=== PATIENT | female | born 1930 | race Caucasian/White ===

== ENCOUNTER → 2016-05-05 15:27 | Outpatient (CLI) | payer MEDICARE, OTHER ==
[2015-08-01 07:03] VITALS: BMI 39.3
[~2016-05-05 15:27] MED LIST: BENICAR HCT 40-1 TAB PO; CARDIZEM CD180 MG PO; COUMADIN5 MG PO; COUMADIN7.5 MG PO; LASIX40 MG PO; LOPID600 MG PO; MAGNESIUM OXID250 MG PO; METOPROLOL TART50 MG PO; MOBIC7.5 MG PO; MULTIPLE VITAMI1 TA1 PO; POTASSIUM CHLOR8 ME1 PO; SYNTHROID100 MCG PO; VITAMIN E100 UNIT PO; ZOCOR40 MG PO; ZOLOFT100 MG PO
== END | disposition home or self-care (01) ==
LOC: D.RAD 15:27
DX: K59.00 Constipation, unspecified (principal)

== ENCOUNTER 2016-07-17 15:47 | Inpatient (IN) | payer MEDICARE, OTHER ==
[~2016-07-17] VITALS: Ht 174 cm; Wt 117.0 kg
--- NOTE | ~2016-07-17 | CN ---
PATIENT NAME:JEANCARLOS GAUTHIER MEDICAL RECORD: [id number] : 34 LOCATION:[address] [address] ADMIT DATE: 07/17/16 ACCOUNT: [id number] CONSULTING PHYSICIAN: JEN VALENZUELA MD REFERRING PHYSICIAN: HORACE CANALES MD DATE OF CONSULTATION: 07/22/2016 Pulmonary Consultation CONSULT REQUESTING PHYSICIAN: Dr. Horace Canales. REASON FOR CONSULTATION: Hospital-acquired pneumonia, COPD. HISTORY OF PRESENT ILLNESS: Ms. Gauthier is an 86-year-old female, who has a history of smoking, almost more than 40 years. She quit 1979, started at age of 15. The patient has no documented COPD and she is not on any home inhaler or nebulizer. The patient was admitted initially with a congestive heart failure, atrial fibrillation and she got better, but since yesterday, she has worsening shortness of breath. The patient was put on oxygen. She is now feeling a little better. She has a cough without much sputum production. She denies any fever or chill. REVIEW OF SYSTEMS: CONSTITUTIONAL: No fever or chills. HEENT: No sinus congestion. RESPIRATORY: As in history of present illness. GASTROINTESTINAL: Negative. CARDIOVASCULAR: She has atrial fibrillation. GENITOURINARY: Negative. Other review of the systems is negative. PAST MEDICAL HISTORY: 1. Hypertension. 2. Atrial fibrillation. 3. Congestive heart failure. 4. History of cerebrovascular accident in 1984. 5. She has a skin basal cell carcinoma. 6. Hypothyroidism. PAST SURGICAL HISTORY: 1. She has cholecystectomy. 2. She has hip replacement and knee surgery. 3. Cataract surgery. 4. She has surgery of her T&A. 5. She has a basal cell carcinoma removed. ALLERGIES: SHE IS ALLERGIC TO CITRUS, ATENOLOL, PLAVIX AND COCONUT. PRESENT MEDICATIONS: On LV Sensorstech was reviewed. PERSONAL AND SOCIAL HISTORY: The patient is a former smoker. She smoked for almost 40 years, she quitted 1979. She is a nondrinker. FAMILY HISTORY: Significant for diabetes and cardiovascular disease. CONSULT REPORT [id number] JEANCARLOS GAUTHIER PHYSICAL EXAMINATION: GENERAL: Now, the patient is lying comfortably. She is not in acute distress. She is wearing nasal cannula oxygen. VITAL SIGNS: The blood pressure is 155/62, pulse is 91, respirations 18, temperature 97.7, SpO2 is 96% on 2 liters nasal cannula. HEENT: Conjunctivae are pink. Sclerae nonicteric. NECK: Supple, no JVD. CHEST: There is no wheeze. There is a crackle on the right side. HEART: Rate and rhythm regular, normal sound, no murmur. ABDOMEN: Soft. Bowel sounds present. No hepatosplenomegaly. RECTAL: Deferred. EXTREMITIES: No cyanosis, no clubbing. There is 1+ pedal edema. SKIN: Warm, normal turgor. CENTRAL NERVOUS SYSTEM: The patient is awake and alert. There are no obvious cranial nerve abnormality. The gait was not tested. CHEST RADIOGRAPH: There is infiltrate in the right upper lobe. OTHER LABORATORY DATA: CBC: WBC 7.2, hemoglobin 10.7, hematocrit 33, the platelet count 164. Chemistry: Sodium 145, potassium 4.3, BUN is 18, creatinine 0.9. IMPRESSION: 1. Acute hypoxic respiratory failure. 2. Pneumonia, right upper lobe, consistent with hospital-acquired pneumonia, possible Gram-negative delaney, doubt methicillin-resistant Staphylococcus aureus. 3. Congestive heart failure, most likely chronic systolic dysfunction. 4. Atrial fibrillation. 5. Ex-smoker. 6. Suspect chronic obstructive pulmonary disease. RECOMMENDATION: 1. I will change the nebulizer to Xopenex and ipratropium nebulizer. 2. Start her on Levaquin and cefepime to cover for Gram-negative rods and HAP. 3. Follow up labs and chest radiograph in the morning. Dr. Canales, once again thanks for involving me in the care of Ms. Gauthier. TRANSINT:[id number] Voice Confirmation ID: [id number] DOCUMENT ID: [id number] JEN VALENZUELA MD CC: HORACE CANALES MD [id number] DICTATION DATE: 07/22/16 1531 WATERPROOF MATERIAL FOLDER: 07/22/16 1638 ADM IN [facility] [address] [facility] [place] [address]
[2016-07-17 16:55] LABS: BASOPHILS 0.1 % (0.0-2.0); EOSINOPHILS 1.1 % (0-7); HEMATOCRIT 37.1 % (36.0-48.0); HEMOGLOBIN 12.8 g/dL (12-16); IMMATURE GRANULOCYTES 0.3 % (0-5); LYMPHOCYTES 6.7 % (15-50); MCH 29.2 pg (26.0-34.0); MCHC 34.5 g/dL (31.0-37.0); MCV 84.7 fL (80.0-100.0); MEAN PLATELET VOLUME 12.3 fL (7.4-10.4); MONOCYTES 7.4 % (2-11); NEUTROPHILS 84.4 % (40-80); RBC 4.38 10x6/uL (4.00-5.40); RDW 14.2 % (11.5-14.5); WBC 8.9 10x3/uL (4.8-10.8)
[2016-07-17 16:57] LABS: PLATELET COUNT 150 10x3/uL (130-400)
[2016-07-17 17:25] LABS: ALBUMIN 3.8 g/dL (3.4-5.0); ANION GAP 22.6 mmol/L (8-16); BILIRUBIN - TOTAL 0.68 mg/dL (0.2-1.3); CALCIUM 8.7 mg/dL (8.5-10.1); CARBON DIOXIDE 16.6 mmol/L (21.0-32.0); CREATININE - SERUM 5.1 mg/dL (0.6-1.3); POTASSIUM - SERUM 3.2 mmol/L (3.5-5.1); PROTEIN - SERUM 6.9 g/dL (6.4-8.2)
[2016-07-17 17:28] LABS: TROPONIN-I 0.041 ng/mL (0.000-0.060)
[2016-07-17 17:54] LABS: APPEARANCE CLOUDY (CLEAR); BILIRUBIN NEGATIVE (NEGATIVE); COLOR YELLOW (YELLOW); GLUCOSE NEGATIVE (NEGATIVE); KETONE NEGATIVE (NEGATIVE); LEUKOCYTE ESTERASE 2+ (NEGATIVE); NITRITE NEGATIVE (NEGATIVE); PROTEIN 1+ mg/dL (NEGATIVE); SPECIFIC GRAVITY 1.015 (1.005-1.020); UROBILINOGEN NORMAL (NORMAL)
[2016-07-17 17:55] LABS: BACTERIA MODERATE /hpf (NONE SEEN); EPITHELIAL CELLS 0-5 /hpf (0-5); WHITE CELLS - URINE 25-50 /hpf (0-5)
[2016-07-17 20:00] VITALS: BP 138/61
--- NOTE | 2016-07-17 20:52 | NUR ---
RECEIVED PATIENT FROM ER. PATIENT DENIES NEEDS AT THIS TIME. BED IN LOWEST POSITION AND CALL LIGHT WITHIN REACH. ENCOURAGED PATIENT TO CALL IF SHE HAS NEEDS.
[2016-07-18] VITALS (7 sets, daily range): BP systolic 123–148; BP diastolic 53–85; Ht 174 cm; Wt 117.0 kg
--- NOTE | 2016-07-18 07:59 | NUR ---
AM ROUNDING DONE WITH ME ASSISTING PATIENT FROM THE RESTROOM. STATES THAT SHE FEEL PRIOR TO ADMIT. LEFT FA SEEN WITH NS INFUSING AT 150 CC/HR. ON ROOM AIR. ON HEART MONITOR SHOWING CAF [facility] PAC, HR 95. ASSSITED BACK TO BED, BED ALARM IS ON, NON SKID SOCKS ON. WILL MONITOR.
[2016-07-18 08:21] LABS: INR 4.33 (0.85-1.17); PROTIME 42.1 SECONDS (11.6-15.0)
--- NOTE | 2016-07-18 10:28 | NUR ---
ASSSITED TO CHAIR PAST RESTROOM USE. DENIES NEEDS AT PRESEN TIME. COMPLETE LINEN CHANGE DONE.
--- NOTE | 2016-07-18 11:08 | NUR ---
SPOKE WITH DANIELLE IN PHARMACY AND WAS TOLD THAT FLAGYL AND LEVAQUIN ARE COMPATIABLE AT Y SITE WITH SODIUM BIACAR.
[2016-07-18 12:57] LABS: ERYTHROCYTE SEDIMENTATION RATE 60 mm/hr (0-30)
--- NOTE | 2016-07-18 13:00 | NUR ---
IV ACCESS-22 GAUGE INSERTED IN RIGHT INNER FOREARM. EILEEN OAKES RN
--- NOTE | 2016-07-18 13:20 | NUR ---
1307-LEFT FA IV CATH REMOVED WITH CATH TIP INTACT.
[2016-07-18 14:28] LABS: CREATININE - URINE 81.4 mg/dL (30-125); POTASSIUM - URINE 12.6 MMOL/L (12.0-62.0); PROTEIN - URINE 24.3 mg/dL (0.0-11.9)
--- NOTE | 2016-07-18 17:56 | NUR ---
1719-COMPLAINTS OF SOME NAUSEA, ZOFRAN GIVEN ORDERED. TYLENOL WAS GIVEN JUST PRIOR FOR BACK PAIN. DR CARREON WAS HERE TO SEE PATIENT.
--- NOTE | 2016-07-18 18:45 | NUR ---
PATIENT HAS BEEN REAL GOOD USING HER CALL LIGHT FOR ALL NEEDS TODAY. REPORT GIVEN TO FAIZA AND BED ALARM IS SET.
--- NOTE | 2016-07-18 19:47 | NUR ---
RECEIVED REPORT FROM DAY NURSE, DENIES ANY NEEDS, BED IS LOW, SRX2, BED ALARM IS ON, CALL LIGHT IN REACH, WILL CONTINUE TO MONITOR
[2016-07-19] VITALS: BP 143/59
--- NOTE | 2016-07-19 01:25 | NUR ---
SLEEPING , BED ALARM ON, BED IS LOW, SRX2, CALL LIGHT IN REACH
[2016-07-19 05:07] VITALS: BP 131/49
[2016-07-19 06:10] LABS: BASOPHILS 0.2 % (0.0-2.0); HEMOGLOBIN 12.1 g/dL (12-16); IMMATURE GRANULOCYTES 0.8 % (0-5); MCHC 34.6 g/dL (31.0-37.0); MCV 83.9 fL (80.0-100.0); MEAN PLATELET VOLUME 12.5 fL (7.4-10.4); MONOCYTES 9.8 % (2-11); NEUTROPHILS 75.2 % (40-80); PLATELET COUNT 144 10x3/uL (130-400); RBC 4.17 10x6/uL (4.00-5.40); RDW 14.1 % (11.5-14.5)
[2016-07-19 06:12] LABS: HEMOGLOBIN A1C 5.4 % (4.8-6.0)
[2016-07-19 06:13] LABS: WBC 4.8 10x3/uL (4.8-10.8)
[2016-07-19 06:21] LABS: INR 2.55 (0.85-1.17); PROTIME 27.6 SECONDS (11.6-15.0)
[2016-07-19 06:22] LABS: CALCIUM 8.5 mg/dL (8.5-10.1); CHOL - HDL RATIO 3.2 ratio (2.3-4.1); LDL-HDL RATIO 1.6 ratio (1.5-3.5); THYROID STIMULATING HORMONE 1.63 uIU/mL (0.36-3.74)
[2016-07-19 06:23] LABS: ANION GAP 12.7 mmol/L (8-16); CREATININE - SERUM 2.2 mg/dL (0.6-1.3)
[2016-07-19 06:24] LABS: POTASSIUM - SERUM 2.7 mmol/L (3.5-5.1)
[2016-07-19 08:08] VITALS: BP 151/71
--- NOTE | 2016-07-19 08:34 | NUR ---
INTRODUCED MYSELF TO PT PRIMARY RN FOR TODAYS SHIFT. REPOSITIONED PT UP IN BED FOR COMFORT AND TO SWALLOW MORNING MEDICATIONS ADEQUATELY. SHIFT ASSESSMENT COMPLETED. PT HAS L.FA PIV WITH SODIUM BICARB @125ML/HR INFUSING. DRSG CDI AND SWAB CAPS IN USE. PT HAS A YIP WITH STAT LOCK SECURED TO R.INNER THIGH. DRAINING BAG HANGING OFF L.SIDE OF BED DRAINING CLEAR YELLOW URINE. PT STATES SHE IS FEELING WELL AND IS IN A PLEASANT MOOD. DENIES ANY CURRENT PAIN OR NEEDS AT THIS TIME. CL IN REACH, BED IN LOWEST, SIDE RAILS X2, WILL CPOC.
--- NOTE | 2016-07-19 10:13 | CN ---
PATIENT NAME:JEANCARLOS GAUTHIER MEDICAL RECORD: [id number] : 34 LOCATION:D. D.2108 ADMIT DATE: 07/17/16 ACCOUNT: [id number] CONSULTING PHYSICIAN: KATARINA KENNY MD REFERRING PHYSICIAN: HORACE CURRY MD DATE OF CONSULTATION: 07/18/2016 Gastroenterology Consultation DATE OF CONSULTATION: 07/18/2016. REFERRING PHYSICIAN: Horace Curry MD HISTORY OF PRESENT ILLNESS: This patient is an 86-year-old white female with a history of AFib, on Coumadin, COPD, CHF, hypothyroidism and cerebrovascular disease, status post CVA, who basically was admitted with new onset renal failure. I was asked to see her because of some diarrhea issues. On chart review, I actually saw this lady back in 2008 for some issues with diarrhea as well as history of colon polyps. Her colonoscopy that in August of 2008 was completely normal with the exception of small internal hemorrhoids. Random biopsies were negative for microscopic colitis. It was felt that she possibly had IBS and I have not seen her since. It looks like for the past year and a half. She has had some recurrent problems with her diarrhea and especially over the past week or two. She develops rather significant weakness and poor appetite over the past few days and was found to be dehydrated and in renal failure with a creatinine of over 5, thus prompting this admission. She has continued taking her medications including Lasix and Mobic as well as Benicar/HCTZ over this past week or so, which probably contributed to her dehydration and renal issues. As noted above, she is on Coumadin because of cerebrovascular disease and apparent blood clot and her AFib as well. She has no known history of kidney disease. She denies any hematochezia or abdominal pain. PAST MEDICAL HISTORY: As above. She also has cataracts. PAST SURGICAL HISTORY: Remarkable cholecystectomy, hip surgery, knee surgery, cataract removal, tubal ligation, and tonsillectomy. ALLERGIES: ATENOLOL AND PLAVIX. HOME MEDICATIONS: Include Coumadin, simvastatin, Lopid, Cardizem, Zoloft, Benicar/HCTZ, Mobic, Lasix, Lopressor, potassium, Synthroid, and vitamins. FAMILY HISTORY: Negative for GI disease. SOCIAL HISTORY: The patient is a former smoker. She denies alcohol use. REVIEW OF SYSTEMS: Noncontributory other than in the HPI. PHYSICAL EXAMINATION: GENERAL: Reveals an elderly white female, in no acute distress. VITAL SIGNS: Stable. She is afebrile. CHEST: Clear. HEART: ____ rate and rhythm. CONSULT REPORT [id number] JEANCARLOS GAUTHIER ABDOMEN: Soft, nontender. EXTREMITIES: No edema. LABORATORY DATA: Reveals normal electrolytes, BUN 105 and creatinine 5.1. Liver enzymes are normal. ProBNP is 2500. Albumin ____ amylase and lipase are normal. White count 8000, hematocrit 37, MCV of 84, and platelet counts 150,000. INR is 4.3. Stool culture __ are pending. DIAGNOSTIC DATA: CT of the abdomen and pelvis is normal other than marked cardiomegaly and enlarged right parapelvic cyst. IMPRESSION: 1. Qgxko-mb-kmmozwg diarrhea of unclear etiology, though I suspect her diarrhea is probably due to irritable bowel syndrome and I would think that her renal disease and dehydration are contributing more towards diarrhea than anything else. 2. Acute renal failure, probably multifactorial in origin, related to Lasix, HCTZ, Mobic, et cetera. 3. History of atrial fibrillation. 4. Hypertension. 5. Cerebrovascular accident, on Coumadin. RECOMMENDATION: 1. Agree with vigorous IV fluids and holding her diuretics and NSAIDs. 2. Follow up stool studies. 3. Agree with empiric antibiotics. 4. If her diarrhea does improve, we will consider flex-sig with random colon biopsies. TRANSINT:[id number] Voice Confirmation ID: [id number] DOCUMENT ID: [id number] KATARINA KENNY MD at 1013 CC: HORACE CURRY MD [id number] DICTATION DATE: 07/18/16 1345 MANAGER DEPARTMENT: 07/18/16 1653 ADM IN [facility] [address] [place] [address]
[2016-07-19 11:57] VITALS: BP 149/75
--- NOTE | 2016-07-19 15:50 | NUR ---
PT CALLED REQUESTING HER TYLENOL FOR A ROYAL AND SHOULDER PAIN AND WAS PROVIDED WITH IT. L.FA PIV INFILTRATED AND WAS REMOVED WITH CATHETER TIP FULLY INTACT. WILL ATTEMPT NEW ACCESS.
[2016-07-19 16:07] VITALS: BP 134/61
--- NOTE | 2016-07-19 16:14 | NUR ---
MIGUEL GURROLA RN ATTEMPTED ACCESS 4 TIMES WITH STILL NO SUCCESS. WILL CALL AND SEE IF ICU NURSE IS AVAILABLE FOR ACCESS.
[2016-07-19 16:22] LABS: ANION GAP 13.7 mmol/L (8-16); CALCIUM 8.2 mg/dL (8.5-10.1); CARBON DIOXIDE 25.6 mmol/L (21.0-32.0); CREATININE - SERUM 1.7 mg/dL (0.6-1.3); POTASSIUM - SERUM 3.3 mmol/L (3.5-5.1)
--- NOTE | 2016-07-19 19:11 | NUR ---
NEW PIV ACCESS ACHEIVED VIA EKTA LEDEZMA RN. 22 GUAGE X1 ATTEMPT. INITIATED IV FLUIDS NS @100ML/HR WITH LEVAQUIN INFUSING IVPB. PT VOICED THANKS AND IS WATCHING TV. DENIES ANY CURRENT PAIN OR FURTHER NEEDS. CL IN REACH, BED LOWEST, SIDE RAILS X2. WILL CPOC.
--- NOTE | 2016-07-19 20:04 | NUR ---
TYLENOL 650 MG GIVEN FOR C/O PAIN TO LEFT SIDE, RATES PAIN AT AN 8 ON PAIN SCALE. WILL CONT TO MONITOR.
--- NOTE | 2016-07-19 21:04 | NUR ---
HS MEDS GIVEN WITH FRESH ICE WATER. PT STATES THAT THE TYLENOL GIVEN EARLIER HAS REALLY HELPED WITH WITH HER LEFT SIDE PAIN. REPOSITIONED IN BED FOR COMFORT. NO OTHER NEEDS AT THIS TIME.
[2016-07-19 21:16] VITALS: BP 149/71
--- NOTE | 2016-07-19 23:11 | NUR ---
RESTING WITH EYES CLOSED, RESPERATIONS EVEN, NO S/S DISTRESS NOTED.
[2016-07-20 00:30] VITALS: BP 155/74
[2016-07-20 04:30] VITALS: BP 155/74
[2016-07-20 05:48] LABS: BASOPHILS 0.4 % (0.0-2.0); EOSINOPHILS 4.5 % (0-7); HEMATOCRIT 32.4 % (36.0-48.0); HEMOGLOBIN 10.8 g/dL (12-16); IMMATURE GRANULOCYTES 2.2 % (0-5); MCH 28.6 pg (26.0-34.0); MCHC 33.3 g/dL (31.0-37.0); MEAN PLATELET VOLUME 11.6 fL (7.4-10.4); MONOCYTES 9.8 % (2-11); NEUTROPHILS 72.1 % (40-80); PLATELET COUNT 135 10x3/uL (130-400); RBC 3.77 10x6/uL (4.00-5.40); RDW 14.4 % (11.5-14.5); WBC 4.5 10x3/uL (4.8-10.8)
[2016-07-20 06:01] LABS: MCV 85.9 fL (80.0-100.0)
[2016-07-20 06:08] LABS: ALBUMIN 2.7 g/dL (3.4-5.0); ANION GAP 13.2 mmol/L (8-16); BILIRUBIN - TOTAL 0.59 mg/dL (0.2-1.3); CALCIUM 8.3 mg/dL (8.5-10.1); CARBON DIOXIDE 23.9 mmol/L (21.0-32.0); CREATININE - SERUM 1.4 mg/dL (0.6-1.3); MAGNESIUM - SERUM 1.7 mg/dL (1.8-2.4); POTASSIUM - SERUM 3.1 mmol/L (3.5-5.1); URIC ACID 9.1 mg/dL (2.6-7.2)
[2016-07-20 06:17] LABS: INR 2.31 (0.85-1.17); PROTIME 25.5 SECONDS (11.6-15.0)
[2016-07-20 07:54] VITALS: BP 149/74
--- NOTE | 2016-07-20 10:10 | NUR ---
PT UP WALKING WITH THERAPY. FEELS GOOD AND STATES SHE IS FEELING STRONGER. AMBULATING WELL WITH WALKER. DENIES ANY CURRENT PAIN OR FURTHER NEEDS. CL IN REACH. WILL CPOC.
[2016-07-20 12:22] VITALS: BP 154/91
--- NOTE | 2016-07-20 12:43 | NUR ---
BLADDER TRAINING INITIATED. CLAMPED OFF YIP AND TEACHING PROVIDED. PT VERBALIZING UNDERSTANDING. FRIENDS AT BEDSIDE VISITING. CL IN REACH. WILL CPOC.
--- NOTE | 2016-07-20 14:02 | NUR ---
PT FELT URGE TO VOID. UNCLAMPED YIP AND ALLOWED URINE FLOW. WILL RECLAMP AND CONTINUE WITH TRAINING.
--- NOTE | 2016-07-20 15:00 | NUR ---
2 GRAMS TOTAL OF MAG REPLACEMENT GIVEN PER ORDER. PT SITTING UP IN BED RESTING QUIETLY DENIES ANY CURRENT PAIN OR NEEDS. WILL CPOC.
[2016-07-20 15:45] VITALS: BP 145/75
--- NOTE | 2016-07-20 17:02 | NUR ---
PT FELT URGE TO VOID AGAIN. TUBING UNCLAMPED THEN RECLAMPED AFTER FLOW OF URINE STOPPED. WILL CONTINUE WITH BLADDER TRAINING.
--- NOTE | 2016-07-20 19:51 | NUR ---
ASSESSMENT COMPLETE, A&O, IN BED WATCHING TV. IV TO RIGHT WRIST WITH NS INFUSING AT 50 CC/HR. SITE CLEAN AND DRY. PT DENIES PAIN OR NEEDS. WILL CONT TO MONITOR.
[2016-07-20 20:00] VITALS: BP 152/88
--- NOTE | 2016-07-21 00:05 | NUR ---
PT STATED THAT SHE HAS THE URGE TO URINATE, YIP UNCLAMPED.
--- NOTE | 2016-07-21 01:19 | NUR ---
RESTING WITH EYES CLOSED, RESPERATIONS EVEN, NO S/S DISTRESS NOTED.
--- NOTE | 2016-07-21 02:30 | NUR ---
YIP CLAMPED OFF FOR BLADDER TRAINING.
--- NOTE | 2016-07-21 03:52 | NUR ---
CUT TO LENGTH OPERATOR AT BEDSIDE FOR VS. NEEDS ADDRESSED. CALL LIGHT IN REACH. WILL CONT TO MONITOR.
[2016-07-21 04:00] VITALS: BP 146/73
--- NOTE | 2016-07-21 04:47 | NUR ---
PHI UNCLAMPED AT PT REQUEST.
[2016-07-21 04:58] LABS: BASOPHILS 0.5 % (0.0-2.0); EOSINOPHILS 3.6 % (0-7); HEMATOCRIT 32.8 % (36.0-48.0); HEMOGLOBIN 10.9 g/dL (12-16); IMMATURE GRANULOCYTES 3.5 % (0-5); LYMPHOCYTES 10.6 % (15-50); MCHC 33.2 g/dL (31.0-37.0); MCV 87.2 fL (80.0-100.0); MEAN PLATELET VOLUME 11.6 fL (7.4-10.4); MONOCYTES 10.9 % (2-11); NEUTROPHILS 70.9 % (40-80); PLATELET COUNT 155 10x3/uL (130-400); RBC 3.76 10x6/uL (4.00-5.40); RDW 14.5 % (11.5-14.5); WBC 5.5 10x3/uL (4.8-10.8)
[2016-07-21 05:15] LABS: ANION GAP 14.2 mmol/L (8-16); CALCIUM 8.8 mg/dL (8.5-10.1); CARBON DIOXIDE 24.4 mmol/L (21.0-32.0); CREATININE - SERUM 1.1 mg/dL (0.6-1.3)
[2016-07-21 05:22] LABS: INR 2.09 (0.85-1.17); PROTIME 23.5 SECONDS (11.6-15.0)
[2016-07-21 05:33] LABS: POTASSIUM - SERUM 3.6 mmol/L (3.5-5.1)
--- NOTE | 2016-07-21 07:20 | NUR ---
AM ROUNDS - PT IN THE BATHROOM. ASSISTED TO CHAIR. MONITOR SHOWING A FIB HR OF 87. FOLLEY DRAINING DARK YELLOW. RIGHT WRIST IV WITH NS 100CC/HR. PT DENIES ANY NEEDS AT THIS TIME. WILL CONTINUE TO MONITOR.
[2016-07-21 08:50] VITALS: BP 153/93
--- NOTE | 2016-07-21 10:00 | NUR ---
UP WITH THERAPY AND ROLLING WALKER AROUND NURSE STATION.
--- NOTE | 2016-07-21 10:59 | NUR ---
1065 - YIP CATH D/C. 450CC CLEAR YELLOW URINE. PT TOLERATED WELL.
[2016-07-21 12:33] VITALS: BP 171/86
[2016-07-21 14:17] LABS: ANA REFLEX - DIRECT Negative (Negative)
--- NOTE | 2016-07-21 16:02 | NUR ---
DR CURRY OFFICE TO CALL WITH NEW ORDERS.
[2016-07-21 16:15] VITALS: BP 176/79
[2016-07-21 19:10] LABS: SPE - ALBUMIN 3.1 g/dL (2.9-4.4); SPE - ALPHA-1 GLOBULIN 0.3 g/dL (0.0-0.4); SPE - ALPHA-2 GLOBULIN 1.1 g/dL (0.4-1.0); SPE - BETA GLOBULIN 0.8 g/dL (0.7-1.3); SPE - GAMMA GLOBULIN 0.8 g/dL (0.4-1.8); SPE - M-SPIKE Not Observed g/dL (Not Observed); SPE - TOTAL PROTEIN 6.1 g/dL (6.0-8.5)
--- NOTE | 2016-07-21 19:37 | NUR ---
ASSESSMENT COMPLETE, A&O. IV TO RIGHT WRIST WITH NS A 50 CC/HR. SITE CLEAN AND DRY. RESPERATIONS EVEN ON ROOM AIR. FRESH ICE WATER GIVEN AT PT REQUEST, PT DENIES OTHER NEEDS AT THIS TIME, BED LOW, CL IN REACH.
[2016-07-21 20:00] VITALS: BP 150/86
--- NOTE | 2016-07-21 20:32 | NUR ---
UP WITH ASSIST TO BR
--- NOTE | 2016-07-21 20:47 | NUR ---
HS MEDS GIVEN WITH FRESH ICE WATER, TYLENOL 650 MG GIVEN FOR C/O HEADACHE. WILL CONT TO MONITOR.
--- NOTE | 2016-07-21 23:23 | NUR ---
INTERIOR ASSEMBLIES DEVELOPER PROVER AT BEDSIDE FOR VS. NEEDS ADDRESSED AT THIS TIME. CALL LIGHT IN REACH. WILL CONT TO MONITOR.
--- NOTE | 2016-07-21 23:27 | NUR ---
RESTING WITH EYES CLOSED, RESPERATIONS EVEN AND UNALABORED.
[2016-07-22] VITALS: BP 149/82
[2016-07-22 04:00] VITALS: BP 160/85
[2016-07-22 05:47] LABS: BASOPHILS 0.3 % (0.0-2.0); EOSINOPHILS 2.8 % (0-7); HEMOGLOBIN 10.7 g/dL (12-16); IMMATURE GRANULOCYTES 3.2 % (0-5); LYMPHOCYTES 7.8 % (15-50); MCH 28.7 pg (26.0-34.0); MCHC 32.4 g/dL (31.0-37.0); MCV 88.5 fL (80.0-100.0); MEAN PLATELET VOLUME 11.5 fL (7.4-10.4); MONOCYTES 7.6 % (2-11); NEUTROPHILS 78.3 % (40-80); PLATELET COUNT 164 10x3/uL (130-400); RBC 3.73 10x6/uL (4.00-5.40); RDW 14.8 % (11.5-14.5)
[2016-07-22 05:55] LABS: WBC 7.2 10x3/uL (4.8-10.8)
[2016-07-22 05:57] LABS: INR 2.16 (0.85-1.17); PROTIME 24.2 SECONDS (11.6-15.0)
[2016-07-22 06:09] LABS: ANION GAP 14.2 mmol/L (8-16); CALCIUM 8.2 mg/dL (8.5-10.1); CARBON DIOXIDE 23.1 mmol/L (21.0-32.0); CREATININE - SERUM 0.9 mg/dL (0.6-1.3)
[2016-07-22 06:10] LABS: POTASSIUM - SERUM 4.3 mmol/L (3.5-5.1)
--- NOTE | 2016-07-22 07:11 | NUR ---
AM ROUNDS - PT AWAKE IN BED. NS INFUSING AT 50CC/HR. MONITOR SHOWING CONTROLLED AFIB, HR 108. PT STATES SHE HAS BEEN URINATING. PT DENIES ANY NEEDS AT THIS TIME. WILL CONTINUE TO MONITOR.
[2016-07-22 07:54] VITALS: BP 153/72
[2016-07-22 11:46] VITALS: BP 155/62
--- NOTE | 2016-07-22 12:43 | NUR ---
PATIENT TO COMPLAIN OF RIGHT HIP "THINK I TWISTED WRONG IN BED LAST NIGHT". CALL PLACED TO DR CURRY OFFICE TO SEE IF WE CAN GET AN XRAY. THEY ARE AT LUNCH AT PRESENT AND WILL CALL BACK.
--- NOTE | 2016-07-22 13:23 | NUR ---
CALLED AGAIN TO DR CURRY'S OFFICE, THEY ARE STILL AT LUNCH AND WILL NOT BE BACK TILL 1400.
--- NOTE | 2016-07-22 13:57 | NUR ---
CALLED AND SPOKE WITH DR CURRY REGARDING RIGHT HIP PAIN. NEW ORDERS RECIVED.
--- NOTE | 2016-07-22 14:28 | NUR ---
PT LEFT FLOOR VIA WHEELCHAIR TO RADIOLOGY.
--- NOTE | 2016-07-22 14:29 | NUR ---
PATIENT TO RADIOLOGY VIA WHEELCHAIR AND PORTABLE O2.
--- NOTE | 2016-07-22 14:49 | NUR ---
PT BACK FROM RADIOLOGY. PT BACK TO THE BED.
[2016-07-22 15:43] VITALS: BP 156/78
--- NOTE | 2016-07-22 16:13 | NUR ---
Patient Name: JEANCARLOS GAUTHIER Admission Status: ER Accout number: [id number] Admission Date: 07-17-2016 : 1932 Admission Diagnosis:UNSPECIFIED KIDNEY FAILURE Attending: DAVIDE Current LOS: 5 Anticipated DC Date: Planned Disposition: Home with Home Health Primary Insurance: MEDICARE A & B PLANNED EXTERNAL PROVIDER: [facility] Discharge Planning Comments: * Is the patient Alert and Oriented? Yes 0 * How many steps to enter\exit or inside your home? NONE 0 * PCP DR. CURRY 0 * Pharmacy [facility] 0 * Preadmission Environment Home Alone 0 * ADLs Independent 0 * Equipment Cane Walker 0 * Other Equipment NO MEDICAL EQUIPMENT PROVIDER PREFERENCE. PT REPORTS ABILITY TO BORROW NEEDED MEDICAL EQUIPMENT FROM [facility] WHERE SHE LIVES. 0 * List name and contact numbers for known caregivers / representatives who currently or will assist patient after discharge: ADE GAUTHIER, BROTHER, 0 * Community resources currently utilized None 0 * Please name any agencies selected above. PT LIVES AT [facility] AND HAS: ME[employer]ICE TRANSPORTATION SERVICE 0 * Additional services required to return to the preadmission environment? No 0 * Can the patient safely return to the preadmission environment? Yes 0 * Has this patient been hospitalized within the prior 30 days at any hospital? No 0 CM MET WITH PT IN ROOM TO DISCUSS DISCHARGE PLANNING AND NEEDS. PT REPORTS LIVING AT HOME INDEPENDENTLY AT [facility] IN AN APARTMENT. PT IS MOVING FROM #417 TO #412 WHEN SHE DISCHARGES HOME. PT HAS A CANE AND WALKER WITH NO MEDICAL EQUIPMENT PROVIDER PREFERENCE. PT REPORTS ABILITY TO OBTAIN ANY NEEDED EQUIPMENT FROM [facility]. PT HAS NO OUTSIDE SERVICES ASSISTING IN THE HOME. CM DISCUSSED AVAILABILITY OF HOME HEALTH, REHAB SERVICES AND MEDICAL EQUIPMENT. PT DENIES REHAB NEED, WILL ACCEPT HOME HEALTH WITH [facility], CHOICE SIGNED. PT REPORTS HER BROTHER OR FRIEND WILL PICK HER UP FOR DISCHARGE HOME. IMPORTANT MESSAGE FROM MEDICARE PROVIDED AND EXPLAINED. PT HAD CONSIDERED HOSPICE WITH HOSPICE HOME CARE WHEN SHE THOUGHT HER KIDNEYS WERE FAILING BUT HER KIDNEYS ARE WORKING AND SHE IS NOT CONSIDERING HOSPICE NOW. CM WILL ARRANGE HOME HEALTH WITH [facility] IF AGREED BY AND ORDERED BY PHYSICIAN. Donkey Engine Firer/Fireman: Kenneth Garcia
[2016-07-22 21:58] VITALS: BP 151/76
[2016-07-23] VITALS: BP 140/66
--- NOTE | 2016-07-23 00:09 | NUR ---
RESTING WITH EYES CLOSED, RESPERATIONS EVEN, NO S/S DISTRESS NOTED.
--- NOTE | 2016-07-23 03:57 | NUR ---
CALL OUT OPERATOR AT BEDSIDE FOR VS. NEEDS ADDRESSED AT THIS TIME. CALL LIGHT IN REACH. WILL CONT TO MONITOR.
--- NOTE | 2016-07-23 04:02 | NUR ---
TYLENOL 650 MG GIVEN AT PT REQUEST FOR C/O HEADACHE.
[2016-07-23 04:45] LABS: BASOPHILS 0.3 % (0.0-2.0); EOSINOPHILS 1.4 % (0-7); HEMATOCRIT 34.8 % (36.0-48.0); HEMOGLOBIN 11.1 g/dL (12-16); IMMATURE GRANULOCYTES 3.4 % (0-5); LYMPHOCYTES 8.4 % (15-50); MCH 28.7 pg (26.0-34.0); MCHC 31.9 g/dL (31.0-37.0); MCV 89.9 fL (80.0-100.0); MEAN PLATELET VOLUME 11.6 fL (7.4-10.4); MONOCYTES 7.5 % (2-11); PLATELET COUNT 186 10x3/uL (130-400); RBC 3.87 10x6/uL (4.00-5.40); WBC 8.8 10x3/uL (4.8-10.8)
[2016-07-23 05:02] LABS: INR 2.91 (0.85-1.17); PROTIME 30.7 SECONDS (11.6-15.0)
[2016-07-23 05:17] LABS: ANION GAP 14.8 mmol/L (8-16); CALCIUM 8.7 mg/dL (8.5-10.1); CARBON DIOXIDE 23.8 mmol/L (21.0-32.0)
[2016-07-23 05:18] LABS: POTASSIUM - SERUM 3.6 mmol/L (3.5-5.1)
[2016-07-23 06:05] VITALS: BP 139/70
[2016-07-23 07:55] VITALS: BP 155/84
[2016-07-23 11:51] VITALS: BP 187/82
--- NOTE | 2016-07-23 13:56 | NUR ---
Nutrition follow-up: Diet: Renal PO intake ~75% average of last 9 meals Labs reviewed +BM Wt: 273# PO intake good at this time. RDN following.
[2016-07-23 16:05] VITALS: BP 151/84
[2016-07-23 22:01] VITALS: BP 163/81
--- NOTE | 2016-07-24 00:50 | NUR ---
ASSESSED AT THE BEGINNING OF THE SHIFT. PT IS ALERT AND ORIENTED, ABLE TO VERBALIZE NEEDS. SHE IS WEARING ICE ACROSS HER SHOULDERS AND HAS REQUESTED TO KEEP IT THERE DUE TO NECK PAIN. SHE HAS ALSO TAKEN FIROCET ORDERED AND NOW HAS TAKEN TYLENOL ORDERED. WE ARE ASSISTING HER UP TO THE BATHROOM TO VOID AND SHE HAS DONE WELL. THER IS TELEMETRY IN PLACE AND O2 AT 2 LITERS. THE BED IS LOW, RAILS UP X'S 2 WITH THE CALL LIGHT AT HAND.
[2016-07-24 01:01] VITALS: BP 171/86
[2016-07-24 04:00] VITALS: BP 162/84
[2016-07-24 04:59] LABS: BASOPHILS 0.2 % (0.0-2.0); HEMATOCRIT 31.5 % (36.0-48.0); HEMOGLOBIN 10.1 g/dL (12-16); IMMATURE GRANULOCYTES 1.7 % (0-5); LYMPHOCYTES 5.5 % (15-50); MCH 28.7 pg (26.0-34.0); MCHC 32.1 g/dL (31.0-37.0); MCV 89.5 fL (80.0-100.0); MONOCYTES 7.3 % (2-11); NEUTROPHILS 84.3 % (40-80); PLATELET COUNT 157 10x3/uL (130-400); RBC 3.52 10x6/uL (4.00-5.40); WBC 8.7 10x3/uL (4.8-10.8)
[2016-07-24 05:24] LABS: INR 4.44 (0.85-1.17)
[2016-07-24 05:39] LABS: ANION GAP 16.3 mmol/L (8-16); CARBON DIOXIDE 20.7 mmol/L (21.0-32.0); CREATININE - SERUM 0.9 mg/dL (0.6-1.3)
[2016-07-24 08:41] VITALS: BP 152/68
[2016-07-24 12:00] VITALS: BP 115/85
[2016-07-24 16:13] VITALS: BP 158/73
--- NOTE | 2016-07-24 16:21 | NUR ---
ALERT AND ORIENTED X4. SOB. LABORED BREATHING. UNABLE TO FINISH SENTENCE WITH ONE BREATH. REFUSED PHYSICAL THERAPY THIS AFTERNOON DUE TO SOB. WHILE SLEEPING O2 SAT DROPS TO 90% @ 2L NC. CALL 'S OFFICE. IV LASIX 20mg Q12H ORDERED VIA TELEPHONE. ELECTROLYTE PROTOCOL ORDERED. CONTINUE PLAN OF CARE. CHAIR LOCKED. UNCONTROLLED A-FIB 115bpm ON TELEMETRY. CALL LIGHT IN REACH.
--- NOTE | 2016-07-24 19:30 | NUR ---
PT RECEIVED SITTING UP IN BED WATCHING TELEVISION. RESPIRATORY AT BEDSIDE ADMINISTERING UPDRAFT. PT IS ALERT AND ORIENTED X4. IV TO LEFT HAND WITH NORMAL SALINE @ KVO, NOTED TO BE PATENT. NO REDNESS OR EDEMA NOTED TO SITE. O2 @ 2L PER NC. CALL LIGHT AND H20 IN PT REACH. BED IN LOW POSITION. SIDE RAILS UP X2.
[2016-07-24 20:00] VITALS: BP 171/81
--- NOTE | 2016-07-25 03:45 | NUR ---
PT RESTING IN BED WITH EYES CLOSED. NO S/S OF DISTRESS NOTED. CALL LIGHT AND H2O IN PT REACH. BED IN LOW POSITION. SIDE RAILS UP X2.
[2016-07-25 04:00] VITALS: BP 164/96
[2016-07-25 04:48] LABS: BASOPHILS 0.1 % (0.0-2.0); EOSINOPHILS 0 % (0-7); HEMATOCRIT 31.5 % (36.0-48.0); HEMOGLOBIN 10.1 g/dL (12-16); IMMATURE GRANULOCYTES 1.1 % (0-5); LYMPHOCYTES 3.4 % (15-50); MCH 28.5 pg (26.0-34.0); MCHC 32.1 g/dL (31.0-37.0); MCV 88.7 fL (80.0-100.0); MEAN PLATELET VOLUME 11.4 fL (7.4-10.4); MONOCYTES 3.4 % (2-11); PLATELET COUNT 154 10x3/uL (130-400); RBC 3.55 10x6/uL (4.00-5.40); RDW 14.9 % (11.5-14.5); WBC 10.4 10x3/uL (4.8-10.8)
[2016-07-25 04:50] LABS: ANION GAP 11.8 mmol/L (8-16); CALCIUM 8.3 mg/dL (8.5-10.1); CARBON DIOXIDE 24.1 mmol/L (21.0-32.0); CREATININE - SERUM 1.1 mg/dL (0.6-1.3); POTASSIUM - SERUM 3.9 mmol/L (3.5-5.1)
[2016-07-25 05:02] LABS: INR 5.54 (0.85-1.17); PROTIME 51.3 SECONDS (11.6-15.0)
--- NOTE | 2016-07-25 07:22 | NUR ---
PT SITTING ON SIDE OF BED COMPLETIONS MANAGER AT BEDSIDE HELPING PT TO BATHROOM DENIES NEEDS WILL CONT TO MONITOR
[2016-07-25 08:51] LABS: MAGNESIUM - SERUM 1.3 mg/dL (1.8-2.4); PHOSPHOROUS 2.8 mg/dL (2.5-4.9)
--- NOTE | 2016-07-25 11:33 | NUR ---
PT SITTING UP IN BED DENIES NEEDS, VERY PLEASANT. WILL CONT TO MONITOR
[2016-07-25 11:54] VITALS: BP 157/89
--- NOTE | 2016-07-25 14:05 | NUR ---
Nutrition Follow Up: Chart reviewed. Pt is eating 50% meal avg on a renal diet. Wt gain of 20# since admit - fluid vs scales? +BM x 6 07/24/16. Labs noted - Glucose elevated. Meds noted including Humulin, Solu-Medrol, Lasix, Flagyl. Pt with poor po intake - not meeting est nutritional needs. Rec consider liberalizing diet to encourage po intake. Will continue to provide selective menus and honor food preferences. RD following.
[2016-07-25 15:21] VITALS: BP 149/88
--- NOTE | 2016-07-25 17:29 | NUR ---
PT SITTING UP IN BED DENIES NEEDS
--- NOTE | 2016-07-25 19:52 | NUR ---
ALERT/AWAKE REC UPDRAFT TX. DENIES PAIN OR ANY NEEDS. IV IN L H INTACT SL. SHIFT ASSESSMENTS COMPLETED. BEDSIDE TABLE AND CALL LIGHT IN REACH.
[2016-07-25 20:34] VITALS: BP 156/94
--- NOTE | 2016-07-25 22:20 | NUR ---
ADMIN TYLENOL 650 MG PO PER REQUEST FOR C/O HEADACHE PAIN LEVEL 4 ON NUMBER SCALE. NO OTHER NEEDS VOICED.
--- NOTE | 2016-07-25 23:08 | NUR ---
ASSISTED TO BATHROOM TO VOID AND BACK TO BED. AMBULATED WITH WALKER. GETS VERY SOB WITH PHYSICAL EXERTION. STAYED WITH HER UNTIL SHE WAS BREATHING EASIER.
[2016-07-26 00:26] VITALS: BP 148/88
[2016-07-26 04:19] VITALS: BP 177/93
--- NOTE | 2016-07-26 05:35 | NUR ---
CHECKED BS AT 123. ADMIN SCHED MEDS. REQUESTED CUP OF ICE AND ASSIST TO BR. NO OTHER NEEDS OR DISCOMFORTS VOICED.
[2016-07-26 05:52] LABS: BASOPHILS 0.1 % (0.0-2.0); EOSINOPHILS 0 % (0-7); HEMOGLOBIN 10.2 g/dL (12-16); IMMATURE GRANULOCYTES 0.7 % (0-5); LYMPHOCYTES 3.4 % (15-50); MCH 29.1 pg (26.0-34.0); MCHC 32.9 g/dL (31.0-37.0); MCV 88.6 fL (80.0-100.0); MEAN PLATELET VOLUME 12.1 fL (7.4-10.4); MONOCYTES 6.4 % (2-11); NEUTROPHILS 89.4 % (40-80); PLATELET COUNT 162 10x3/uL (130-400); RDW 14.9 % (11.5-14.5)
[2016-07-26 05:53] LABS: WBC 13.7 10x3/uL (4.8-10.8)
[2016-07-26 05:54] LABS: INR 2.12 (0.85-1.17); PROTIME 23.8 SECONDS (11.6-15.0)
[2016-07-26 05:56] LABS: ANION GAP 17.4 mmol/L (8-16); CALCIUM 8.4 mg/dL (8.5-10.1); CARBON DIOXIDE 20.4 mmol/L (21.0-32.0); CREATININE - SERUM 1.3 mg/dL (0.6-1.3); MAGNESIUM - SERUM 1.5 mg/dL (1.8-2.4); PHOSPHOROUS 3.1 mg/dL (2.5-4.9); POTASSIUM - SERUM 3.8 mmol/L (3.5-5.1)
--- NOTE | 2016-07-26 07:42 | NUR ---
0730-AM ROUNDING DONE. PATIENT REPORTS TO BEING "AIR HUNGRY". ON 3L PER NC, O2 SAT IS 93%. PATIENT HAS A SQUEAKING SOUND, NOT STRIDOR, TO HER THROAT AREA, BILATERAL LUNGS ARE DIMINISHED. WILL GIVE HER SOME HOT TEA TO SEE IF THIS HELPS ANY. ON HEART MONITOR SHOWING UCAF, HR 135. SALINE LOCK SEEN TO LEFT HAND. ON EP, MAG IS 1.5, WILL GIVE PO SUPPLEMENTS. HAS HEADACHE, WILL SEE ABOUT SOMETHING FOR IT. WILL MONITOR.
[2016-07-26 07:58] VITALS: BP 165/85
--- NOTE | 2016-07-26 09:57 | NUR ---
UP TO RESTROOM WITH HEART RATE JUMPING TO 180 PER STORE FACILITY TECHNICIAN.
--- NOTE | 2016-07-26 10:48 | NUR ---
CALL PLACED TO DR KOENIG PATIENT STATES THAT SHE FEELS HER BREATHING IS MORE SHALLOW. "I CAN BREATH THROUGH MY NOSE BUT WHEN I PURSE MY LIPS TO BREATH OUT I CAN'T BREATH AND HAVE TO TAKE ANOTHER SHALLOW BREATH". CALL PLACED TO SEE IF WE CAN GET HER SOME ATIVAN TO HELP WITH BREATHING. R 33, OS SAT IS 92%.
--- NOTE | 2016-07-26 11:01 | NUR ---
DR KOENIG TO CALL BACK WITH SOME NEW ORDERS.
--- NOTE | 2016-07-26 11:42 | NUR ---
1114-ATIVAN 0.5 MG GIVEN PO ORDERED. ENCOURAGED TO TRY AND SLOW HER BREATHING DOWN IF SHE COULD, CHEECKS ARE FLUSHED. WILL CONTINUE TO MONITOR HER. 1145-CHEECKS ARE NOT FLUSHED NOW, IV STEROIDS GIVEN EARY TO SEE IF THAT MIGHT HELP WITH AIR FLOW. SHE STATES THAT SHE HAS CALLED HER BROTHER, HER S.O, AND HER HIGH RISK OB IN.
[2016-07-26 11:54] VITALS: BP 135/93
--- NOTE | 2016-07-26 12:25 | NUR ---
RESP 36. STILL STATES THAT SHE CAN NOT GET "AIR". O2 SAT IS 93%.
--- NOTE | 2016-07-26 13:16 | NUR ---
PATIENT'S FAMILY (BROTHER VICTORIANO) IS HERE. PATIENT IS SQEEKING AGAIN WITH HER BREATHING TREATMENT. RESP ARE STILL 36. WILL CONTINUE TO MONITOR AND WILL ASK DR KOENIG WHEN IF THERE IS SOMETHING ELSE WE CAN GIVE HER. R.T PLACED HER ON 4L PER NC HER SAT DROPPED TO 88% BEFORE BREATHING TREATMENT.
[2016-07-26 15:39] VITALS: BP 148/82
--- NOTE | 2016-07-26 16:44 | NUR ---
IV STARTING TO INFILTATE TO LEFT HAND. LEVAQUIN STOPPED. WILL ATTEMPT RE-SITE.
--- NOTE | 2016-07-26 18:20 | NUR ---
PAST 3 ATTEMPTS BY SARWAT IN ICU AND ONCE BY Viky ESTRADA RN, 20 G TO RIGHT FA. LEVAQUIN RESTARTED.
--- NOTE | 2016-07-26 19:03 | NUR ---
SITTING UP IN BED, AAOX3, SKIN WARM AND DRY, RESP LABORED AND SHALLOW, O2@2LNC, IV PATENT TO RIGHT WRIST, WILL CONTINUE TO MONITOR
--- NOTE | 2016-07-26 20:00 | NUR ---
FOUND IN BED NOT BREATHING, UNRESPONSIVE, NO PULSE DETECTED, DR KOENIG NOTIFIED
[2016-07-26 20:19] VITALS: BP 139/85
--- NOTE | 2016-07-26 20:25 | NUR ---
DR WELSH IN TO [facility], FAMILY NOTIFED
--- NOTE | 2016-07-26 22:30 | NUR ---
RELEASED TO [facility]
== END 2016-07-26 22:48 | DRG 682 ==
LOC: D.ER 15:47 → D.M2 18:06 → D.SDCHOLD 07-21 10:37 → D.M2 07-26 22:48
PROVIDERS: Family Medicine; Internal Medicine Nephrology; ADMIT Family Medicine
PROC: 0T9B70Z Drainage of Bladder with Drainage Device, Via Natural or Artificial Opening (ICD-10-PCS; principal; 2016-07-18)
DX: N17.0 Acute kidney failure with tubular necrosis (principal); J96.01 Acute respiratory failure with hypoxia; J15.6 Pneumonia due to other Gram-negative bacteria; I13.0 Hypertensive heart and chronic kidney disease with heart failure and stage 1 through stage 4 chronic kidney disease, or unspecified chronic kidney disease; A09 Infectious gastroenteritis and colitis, unspecified; N39.0 Urinary tract infection, site not specified; I50.22 Chronic systolic (congestive) heart failure; E86.0 Dehydration; I48.91 Unspecified atrial fibrillation; Z79.01 Long term (current) use of anticoagulants; J44.9 Chronic obstructive pulmonary disease, unspecified; N18.9 Chronic kidney disease, unspecified; E03.9 Hypothyroidism, unspecified; K58.9 Irritable bowel syndrome, unspecified; E66.9 Obesity, unspecified; R51 Headache; Z86.73 Personal history of transient ischemic attack (TIA), and cerebral infarction without residual deficits; Z68.38 Body mass index [BMI] 38.0-38.9, adult; Z87.891 Personal history of nicotine dependence